=== PATIENT | female | born 1960 | race Caucasian/White ===

== ENCOUNTER 2020-12-27 18:51 | Emergency (ER) | payer OTHER ==
--- OUTSIDE RECORDS SUMMARY | 2020-12-27 19:02 | EXTERNAL MEDICAL SUMMARY RPT | Continuity of Care Document ---
:1960 Demographics Phone Unavailable Preferred Language Unknown Marital Status Unknown Anglican Affiliation Unknown Race Unknown Ethnic Group Unknown Author Organization [place] Address [address] [id number] Phone Social History date description facility [phone]
[2020-12-27 19:06] VITALS: BP 98/75
--- NOTE | 2020-12-27 20:10 | XRAY Report ---
PROCEDURE: Ankle 3 View LT INDICATIONS: Trauma TECHNIQUE: 3 views of the ankle were acquired. COMPARISON: Left foot radiographs 06/29/2014 FINDINGS: Bones: Tiny minimally displaced avulsion-type fracture at the distal tip of the fibula. No additional fracture is seen. Ankle mortise is normally aligned. No suspicious bony lesions. A plantar calcane al spur is present. Soft tissues: Soft tissue edema is seen over the lateral malleolus. IMPRESSION: Tiny minimally displaced avulsion fracture at the distal tip of the fibula with overlyin g soft tissue edema. Reviewed by: Hossein Dutta MD on 12/27/2020 8:09 PM PDT Approved by: Hossein Dutta MD on 12/27/2020 8:09 PM PDT Station ID: [id number]
--- NOTE | 2020-12-27 20:44 | ED Physician Documentation ---
History of Present Illness - Stated complaint Stated Complaint: LT LEG INJURY - Chief complaint Chief Complaint: Trauma Ext - History obtained from History obtained from: Patient - Additonal information Additional information: 60-year-old woman presents with left ankle pain after twisting it today. She is unable to ambulate normally afterwards and come to the emergency department to be evaluated. Pain was sudden onset, aching, localized to the lateral part of the left ankle and nonradiating, worse with range of motion. Patient denies other symptoms or other injury. Review of Systems Skin: denies: Lesions, Abrasion (s) Musculoskeletal: reports: Extremity pain, Joint pain Neurologic: denies: Focal weakness, Numbness PD PAST MEDICAL HISTORY - Past Medical History Past Medical History: No - Past Surgical History Past Surgical History: Yes Ortho: Carpal Tunnel surgery HEENT: Tonsil/Adenoidectomy - Present Medications Home Medications: Ambulatory Orders Medication Instructions Recorded Confirmed No Known Home Medications 12/27/20 12/27/20 - Allergies Allergies/Adverse Reactions: Allergies Allergy/AdvReac Type Severity Reaction Status Date / Time No Known Drug Allergies Allergy Verified 12/27/20 19:03 - Social History Does the pt smoke?: No Smoking Status: Never smoker Does the pt drink ETOH?: No Does the pt have substance abuse?: No - Immunizations Immunizations are current?: Yes - POLST Patient has POLST: No PD ED PE NORMAL - Vitals Vital signs reviewed: Yes - General General: Alert and oriented X 3, No acute distress, Well developed/nourished - HEENT HEENT: Atraumatic, PERRL, EOMI - Neck Neck: Supple, no meningeal sign - Cardiac Cardiac: RRR - Respiratory Respiratory: No respiratory distress, Clear bilaterally - Abdomen Abdomen: Non tender, Non distended - Female Female : Deferred - Rectal Rectal: Deferred - Back Back: No CVA TTP - Derm Derm: Normal color, Warm and dry - Extremities Extremities: No deformity, Other (Normal sensation bilateral lower extremity. normal strength in bilateral lower extremity. 2+ bilateral DP and PT pulses. Left lateral malleolus tender to palpation. Nontender to other parts of the ankle or foot.) - Neuro Neuro: Alert and oriented X 3 - Psych Psych: Normal mood, Normal affect Results - Vitals Vitals: Vital Signs - 24 hr 12/27/20 19:03 Temperature 36.5 C Heart Rate 72 Respiratory 16 Rate Blood Pressure 98/75 O2 Saturation 100 Oxygen O2 Source Room air PD MEDICAL DECISION MAKING - ED course Complexity details: reviewed results, d/w patient ED course: 60-year-old woman presents with L distal fibula avulsion fracture. Patient was provided with a hard boot and crutches and Ortho follow-up in 1 week. Strict return precautions given. Departure - Departure Disposition: 01 Home, Self Care Clinical Impression: Fracture of distal fibula Condition: Good Instructions: ED RICE Follow-Up: Tobias Naidu MD [Provider Admit Priv/Credential] - Comments: You are seen in the emergency department for break in the tip of your fibula on the left side. Please follow-up with Dr. Naidu in 1 week or with the [facility] for orthopedics referral. Return to the emergency department if you experience any new or worsening symptoms or other concerns. Discharge Date/Time: 12/27/20 21:15
== END 2020-12-27 21:15 | disposition home or self-care (01) ==
LOC: ED 18:51
DX: S82.832A Other fracture of upper and lower end of left fibula, initial encounter for closed fracture (principal); X50.1XXA Overexertion from prolonged static or awkward postures, initial encounter; Y93.01 Activity, walking, marching and hiking
CPT/HCPCS: 99283; 99284

== ENCOUNTER 2023-01-03 00:14 | Emergency (ER) | payer OTHER ==
--- OUTSIDE RECORDS SUMMARY | 2023-01-03 00:59 | EXTERNAL MEDICAL SUMMARY RPT | Continuity of Care Document ---
:1960 Author Organization [facility] Address [address] [place] [address] Phone Care Team Providers Name Role Phone Unavailable Unavailable Unavailable Praneeth Patterson Unavailable Unavailable Allergies and Intolerances date description facility type (no date) No Known Drug Allergies [facility] (unkn own) Encounters No information. Functional Status No information. Immunizations No information. Medications No information. Problems date description facility 2022-11-21 11:52 Abnormal findings on diagnostic imaging of [facility] liver and biliary 2022-11-21 12:52 Abnormal findings on diagnostic imaging of [facility] liver and biliary 2022-11-26 08:58 Abnormal findings on diagnostic imaging of [facility] liver and biliary 2022-11-26 08:58 Encounter for screening for malignant [facility] colon 2022-11-26 11:26 Abnormal findings on diagnostic imaging of [facility] liver and biliary 2022-11-26 11:26 Encounter for screening for malignant [facility] colon 2022-11-26 11:39 Abnormal findings on diagnostic imaging of [facility] liver and biliary 2022-11-26 11:39 Encounter for screening for malignant [facility] colon 2022-11-26 12:08 Abnormal findings on diagnostic imaging of [facility] liver and biliary 2022-11-26 12:08 Encounter for screening for malignant [facility] colon Procedures date description facility 2022-11-21 00:00 Biopsy, liver, with US guidance [facility] 2022-11-26 00:00 Colonoscopy [facility] 2022-11-21 00:00 [facility] test date author facility value unit interpret ation Result panel 1 (unknown) (no date) (unknown) [facility]) Result panel 2 (unknown) (no date) (unknown) [facility] Result panel 3 (unknown) (no date) (unknown) [facility] Result panel 4 (unknown) (no date) (unknown[facility]) Result panel 5 (unknown) (no date) (unknown[facility]) Result panel 6 (unknown) (no date) (unknown[facility]) Result panel 7 (unknown) (no date) (unknown[facility]) Result panel 8 (unknown) (no date) (unknown[facility]) Result panel 9 (unknown) (no date) (unknown[facility]) Result panel 10 (unknown) (no date) (unknown[facility]) Result panel 11 (unknown) (no date) (unknown[facility]) Result panel 12 (unknown) (no date) (unknown[facility]) Result panel 13 (unknown) (no date) (unknown[facility]) Result panel 14 (unknown) (no date) (unknown[facility]) Result panel 15 (unknown) (no date) (unknown[facility]) Result panel 16 (unknown) (no date) (unknown[facility]) Result panel 17 (unknown) (no date) (unknown[facility]) Result panel 18 (unknown) (no date) (unknown[facility]) Result panel 19 (unknown) (no date) (unknown[facility]) Result panel 20 (unknown) (no date) (unknown[facility] Result panel 21 (unknown) (no date) (unknown) (unknown) (no value) (units 191 39-5 unknown) (unknown) (no date) (unknown) (unknown) (no value) (units 226 33-2 unknown) (unknown) (no date) (unknown) (unknown) (no value) (units 226 34-0 unknown) (unknown) (no date) (unknown) (unknown) (no value) (units 226 37-3 unknown) (unknown) (no date) (unknown) (unknown) (no value) (units 495 60-6 unknown) (unknown) (no date) (unknown) (unknown) (no value) (units 527 97-8 unknown) (unknown) (no date) (unknown) (unknown) (no value) (units (un known) unknown) (unknown) (no date) (unknown) (unknown) (no value) (units (un known) unknown) (unknown) (no date) (unknown) (unknown) (no value) (units (un known) unknown) (unknown) (no date) (unknown) (unknown) (no value) (units (un known) unknown) (unknown) (no date) (unknown) (unknown) (no value) (units (un known) unknown) (unknown) (no date) (unknown) (unknown) (no value) (units (un known) unknown) (unknown) (no date) (unknown) (unknown) Comment: (units 37330 -1 unknown) (unknown) (no date) (unknown) (unknown) Comment: (units (unkn own) unknown) Result panel 22 (unknown) (no (unknown) (unknown) (no value) (units (unk nown) date) unknown) (unknown) (no (unknown) (unknown) 11/21/22 (units (unkno wn) date) unknown) (unknown) (no (unknown) (unknown) [id number] (units (unkno wn) date) unknown) (unknown) (no (unknown) (unknown) [address] [place] [address] (units (unknown) date) unknown) (unknown) (no (unknown) (unknown) Accession (units (unkn own) date) Number: unknown) [id number] (unknown) (no (unknown) (unknown) Age/Sex: 62 / F (units (unknown) date) Date of Service: unknown) (unknown) (no (unknown) (unknown) [facility] [place] (units ( unknown) date) [id number] unknown) (unknown) (no (unknown) (unknown) Approved by: (units (u nknown) date) Frank Ya M.D. on unknown) 11/21/2022 at 17:57 (unknown) (no (unknown) (unknown) Biopsy site(s): (units (unknown) date) Left hepatic lobe unknown) (unknown) (no (unknown) (unknown) COMPARISON: (units (un known) date) None. unknown) (unknown) (no (unknown) (unknown) Complications: (units (unknown) date) None. unknown) (unknown) (no (unknown) (unknown) : 1960 (units (unknown) date) Acct:[id number] unknown) (unknown) (no (unknown) (unknown) Dictated by: (units (u nknown) date) Frank Ya M.D. on unknown) 11/21/2022 at 17:55 (unknown) (no (unknown) (unknown) FINDINGS: (units (unkn own) date) unknown) (unknown) (no (unknown) (unknown) IMPRESSION: (units (un known) date) Successful unknown) ultrasound-guided liver biopsy, with pathology results (unknown) (no (unknown) (unknown) INDICATIONS: (units (u nknown) date) ABNORMAL LIVER unknown) (unknown) (no (unknown) (unknown) [facility] (units (unknown) date) unknown) (unknown) (no (unknown) (unknown) Loc: OR (units (unkno wn) date) unknown) (unknown) (no (unknown) (unknown) Medications: 1% (units (unknown) date) lidocaine for unknown) local anaesthesia. IV Versed and Fentanyl for (unknown) (no (unknown) (unknown) Needle: Temno (units ( unknown) date) biopsy needle unknown) set. 20 gauge (unknown) (no (unknown) (unknown) Number of (units (unkn own) date) passes: 5 unknown) (unknown) (no (unknown) (unknown) Ordering (units (unkno wn) date) Provider: unknown) Praneeth Patterson MD (unknown) (no (unknown) (unknown) PROCEDURE: US (units ( unknown) date) BIOPSY LIVER unknown) (unknown) (no (unknown) (unknown) Patient: (units (unkno wn) date) Indira Chavez unknown) MR#: [id number] (unknown) (no (unknown) (unknown) Procedure: US (units ( unknown) date) biopsy liver unknown) (unknown) (no (unknown) (unknown) Real-time (units (unkn own) date) sonography was unknown) utilized to choose the site for percutaneous hepatic (unknown) (no (unknown) (unknown) Signed (units (unkno wn) date) unknown) (unknown) (no (unknown) (unknown) TECHNIQUE: The (units (unknown) date) indications, unknown) alternatives, benefits, risks, and complications of (unknown) (no (unknown) (unknown) The skin was (units (u nknown) date) prepped and unknown) draped in the usual sterile fashion. 1% lidocaine was (unknown) (no (unknown) (unknown) Ultrasound (units (unk nown) date) Report unknown) (unknown) (no (unknown) (unknown) Ultrasound-guide (units (unknown) date) d liver biopsy unknown) with sedation analgesia for approximately 30 (unknown) (no (unknown) (unknown) and (units (unkno wn) date) unknown) (unknown) (no (unknown) (unknown) biopsy. (units (unkno wn) date) unknown) (unknown) (no (unknown) (unknown) conscious (units (unkn own) date) unknown) (unknown) (no (unknown) (unknown) core biopsies (units ( unknown) date) were obtained. unknown) The needle was then withdrawn; a bandage and (unknown) (no (unknown) (unknown) infiltrated down (units (unknown) date) to the hepatic unknown) capsule. A coaxial needle was then advanced (unknown) (no (unknown) (unknown) into the (units (unkno wn) date) unknown) (unknown) (no (unknown) (unknown) liver under (units (un known) date) direct unknown) sonographic visualization. A biopsy apparatus was then (unknown) (no (unknown) (unknown) minutes. (units (unkno wn) date) unknown) (unknown) (no (unknown) (unknown) overlying (units (unkn own) date) unknown) (unknown) (no (unknown) (unknown) pending. (units (unkno wn) date) unknown) (unknown) (no (unknown) (unknown) personnel. (units (unk nown) date) unknown) (unknown) (no (unknown) (unknown) placed in the (units ( unknown) date) chart. Continuous unknown) EKG and hemodynamic monitoring was started by (unknown) (no (unknown) (unknown) procedure were (units (unknown) date) explained to the unknown) patient. Written informed consent was obtained (unknown) (no (unknown) (unknown) sedation for (units (u nknown) date) approximately 30 unknown) minutes (see nursing record). (unknown) (no (unknown) (unknown) the (units (unkno wn) date) unknown) (unknown) (no (unknown) (unknown) trained (units (unkno wn) date) unknown) (unknown) (no (unknown) (unknown) utilized, and (units ( unknown) date) unknown) (unknown) (no (unknown) (unknown) weight were (units (un known) date) applied to the unknown) biopsy site. Result panel 23 (unknown) (no date) (unknown) (unknown) 13.6 g/dl (unkn own) (unknown) (no date) (unknown) (unknown) 13.8 % (unkn own) (unknown) (no date) (unknown) (unknown) 3.4 x10 3/ul (unkn own) (unknown) (no date) (unknown) (unknown) 31.7 pg (unkn own) (unknown) (no date) (unknown) (unknown) 33.8 % (unkn own) (unknown) (no date) (unknown) (unknown) 4.29 x10 6/ul (unkn own) (unknown) (no date) (unknown) (unknown) 40.3 % (unkn own) (unknown) (no date) (unknown) (unknown) 83 x10 3/ul (unkn own) (unknown) (no date) (unknown) (unknown) 93.8 fl (unkn own) Result panel 24 (unknown) (no date) (unknown) (unknown) 1.1 (units unknown) (unknown) (unknown) (no date) (unknown) (unknown) 12.6 seconds (unkn own) Result panel 25 (unknown) (no date) (unknown) (unknown) 40 seconds (unkn own) (unknown) (no date) (unknown) (unknown) 40 seconds (unkn own) Result panel 26 (unknown) (no (unknown) (unknown) (no value) (units (unk nown) date) unknown) (unknown) (no (unknown) (unknown) [id number]) (units (unknown) date) unknown) (unknown) (no (unknown) (unknown) (units (unknown) date) unknown) (unknown) (no (unknown) (unknown) Performed at: (units (unknown) date) 01 unknown) (unknown) (no (unknown) (unknown) . 01 (units (unkno wn) date) unknown) (unknown) (no (unknown) (unknown) . (units (unkno wn) date) unknown) (unknown) (no (unknown) (unknown) /FRR 11/22/2022 (units (unknown) date) 1403 Local unknown) (unknown) (no (unknown) (unknown) [address] [place] [address] (units (unknown) date) unknown) (unknown) (no (unknown) (unknown) [address] [place] [address] (units (unknown) date) [address], unknown) [place] [phone] (unknown) (no (unknown) (unknown) [id number], [id number], (units (unknown) date) [id number], [id number], unknown) [id number] (unknown) (no (unknown) (unknown) [place] (units ( unknown) date) [id number] unknown) (unknown) (no (unknown) (unknown) CPT . (units (unkno wn) date) unknown) (unknown) (no (unknown) (unknown) Chronic hepatitis (units (unknown) date) with moderate unknown) activity (grade 3) and septal (unknown) (no (unknown) (unknown) Collection Date: (units (unknown) date) 11/21/22 unknown) (unknown) (no (unknown) (unknown) Comment: (units (unkno wn) date) unknown) (unknown) (no (unknown) (unknown) DD/ (units (unknown) date) 0000 unknown) (unknown) (no (unknown) (unknown) Date of : (units (unknown) date) 1960 Admit unknown) Date: 11/21/22 (unknown) (no (unknown) (unknown) Diagnosis: (units (unk nown) date) unknown) (unknown) (no (unknown) (unknown) Dictated By: (units (u nknown) date) Stacy Benitez unknown) (unknown) (no (unknown) (unknown) Electronically (units (unknown) date) signed: . unknown) (unknown) (no (unknown) (unknown) Gross description: (units (unknown) date) . unknown) (unknown) (no (unknown) (unknown) [facility] (units (unknown) date) unknown) (unknown) (no (unknown) (unknown) [facility] Accession (units ( unknown) date) Number: [id number] unknown) (unknown) (no (unknown) (unknown) [facility] (units (unknown) date) Cytology unknown) (unknown) (no (unknown) (unknown) Left Lobe of (units (u nknown) date) Liver, Image-Guided unknown) Core Biopsy: (unknown) (no (unknown) (unknown) MD Jun Hay (units (unknown) date) Phone: unknown) [phone] (unknown) (no (unknown) (unknown) (units (unknown) date) Dictating Dr: unknown) Stacy Benitez MD (unknown) (no (unknown) (unknown) MRV 11/27/2022 (units (unknown) date) 1625 Local unknown) (unknown) (no (unknown) (unknown) Material (units (unkno wn) date) submitted: . unknown) (unknown) (no (unknown) (unknown) [facility]- [id number] (units (unknown) date) unknown) (unknown) (no (unknown) (unknown) No. of (units (o wn) date) containers..01 unknown) Tissue (unknown) (no (unknown) (unknown) Ordering (units (o wn) date) Physician: unknown) Praneeth Patterson MD (unknown) (no (unknown) (unknown) Pathologist (units (un known) date) provided ICD-10: unknown) (unknown) (no (unknown) (unknown) Pathology (units (unkn own) date) Diagnostic Report unknown) (unknown) (no (unknown) (unknown) Patient name: (units ( unknown) date) Indira Chavez unknown) (unknown) (no (unknown) (unknown) Stacy (units (o wn) date) MD Eli, unknown) Pathologist (unknown) (no (unknown) (unknown) R93.2 (units (o wn) date) unknown) (unknown) (no (unknown) (unknown) Signed By: (units (unk nown) date) 11/27/221934 unknown) (unknown) (no (unknown) (unknown) Signed (units (o wn) date) unknown) (unknown) (no (unknown) (unknown) TD/TT: 11/27/22 (units (unknown) date) 1934 unknown) (unknown) (no (unknown) (unknown) The liver shows (units (unknown) date) moderate degree of unknown) predominantly chronic inflammation of (unknown) (no (unknown) (unknown) The specimen is (units (unknown) date) received in unknown) formalin labeled with the patient's name, , (unknown) (no (unknown) (unknown) This case is also (units (unknown) date) reviewed by Dr. 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 In addition, (unknown) (no (unknown) (unknown) fibrosis/cirrhosis (units (unknown) date) is present. A unknown) reticulin stain highlights focal hepatic (unknown) (no (unknown) (unknown) greatest (units (unkno wn) date) dimension. The unknown) specimen is submitted entirely in cassette A1. (unknown) (no (unknown) (unknown) hepatocellular (units (unknown) date) damage associated unknown) with chronic and occasionally (unknown) (no (unknown) (unknown) interpretation. (units (unknown) date) unknown) (unknown) (no (unknown) (unknown) liver - LEFT LOBE (units (unknown) date) LIVER unknown) (unknown) (no (unknown) (unknown) neutrophilic/eosin (units (unknown) date) ophilic unknown) inflammation. The bile ducts are intact without (unknown) (no (unknown) (unknown) normal limits. A (units (unknown) date) trichrome stain unknown) highlights the presence of fibrous (unknown) (no (unknown) (unknown) plates composed of (units (unknown) date) two to three cells unknown) in thichkness. A PAS with diastase (unknown) (no (unknown) (unknown) proliferation or (units (unknown) date) inflammation. Fatty unknown) change is not seen. Septal bridging (unknown) (no (unknown) (unknown) scoring system. (units (unknown) date) unknown) (unknown) (no (unknown) (unknown) septae. Given the (units (unknown) date) patient's history unknown) of alcohol use and obesity, these (unknown) (no (unknown) (unknown) stain is negative (units (unknown) date) for unknown) intracytoplasmic globules. An iron stain is within (unknown) (no (unknown) (unknown) studies to rule (units (unknown) date) out viral/biliary unknown) etiologies are recommended. (unknown) (no (unknown) (unknown) the portal tracts (units (unknown) date) with extension unknown) beyond the limiting plates and foci of Result panel 27 (unknown) (no date) (unknown) (unknown) 42.1 % (unkn own) (unknown) (no date) (unknown) (unknown) 42.1 % (unkn own) Result panel 28 (unknown) (no date) (unknown) (unknown) (no value) (units 191 39-5 unknown) (unknown) (no date) (unknown) (unknown) (no value) (units 226 33-2 unknown) (unknown) (no date) (unknown) (unknown) (no value) (units 226 34-0 unknown) (unknown) (no date) (unknown) (unknown) (no value) (units 226 37-3 unknown) (unknown) (no date) (unknown) (unknown) (no value) (units 495 60-6 unknown) (unknown) (no date) (unknown) (unknown) (no value) (units 527 97-8 unknown) (unknown) (no date) (unknown) (unknown) (no value) (units (un known) unknown) (unknown) (no date) (unknown) (unknown) (no value) (units (un known) unknown) (unknown) (no date) (unknown) (unknown) (no value) (units (un known) unknown) (unknown) (no date) (unknown) (unknown) (no value) (units (un known) unknown) (unknown) (no date) (unknown) (unknown) (no value) (units (un known) unknown) (unknown) (no date) (unknown) (unknown) (no value) (units (un known) unknown) Result panel 29 (unknown) (no (unknown) (unknown) (no value) (units (unk nown) date) unknown) (unknown) (no (unknown) (unknown) (past 8 hours): (units (unknown) date) unknown) (unknown) (no (unknown) (unknown) 11/26/22 1050 (units ( unknown) date) unknown) (unknown) (no (unknown) (unknown) 11/26/22 (units (unkno wn) date) unknown) (unknown) (no (unknown) (unknown) 09:39 (units (unkno wn) date) unknown) (unknown) (no (unknown) (unknown) [id number] (units (unkno wn) date) unknown) (unknown) (no (unknown) (unknown) Abnormal uterine (units (unknown) date) bleeding unknown) (unknown) (no (unknown) (unknown) Acquired trigger (units (unknown) date) finger unknown) (unknown) (no (unknown) (unknown) Age/Sex: 62 / F (units (unknown) date) unknown) (unknown) (no (unknown) (unknown) Allergies (units (unkn own) date) unknown) (unknown) (no (unknown) (unknown) Allergy/AdvReac (units (unknown) date) Type Severity unknown) Reaction Status Date / Time (unknown) (no (unknown) (unknown) Arthritis (units (unkn own) date) unknown) (unknown) (no (unknown) (unknown) Assessment + (units (u nknown) date) Plan narrative: unknown) (unknown) (no (unknown) (unknown) Assessment + (units (u nknown) date) Plan unknown) (unknown) (no (unknown) (unknown) Blood Pressure (units (unknown) date) 134/74 unknown) (unknown) (no (unknown) (unknown) Borderline blood (units (unknown) date) pressure unknown) (unknown) (no (unknown) (unknown) Cardiac exam (units (u nknown) date) reveals no S3 or unknown) murmur (unknown) (no (unknown) (unknown) Chest clear to (units (unknown) date) auscultation unknown) percussion (unknown) (no (unknown) (unknown) Chief complaint: (units (unknown) date) Colonoscopy unknown) (unknown) (no (unknown) (unknown) Colonoscopy with (units (unknown) date) biopsy and unknown) terminal ileoscopy to be performed for loose stools (unknown) (no (unknown) (unknown) : 1960 (units (unknown) date) Acct:[id number] unknown) (unknown) (no (unknown) (unknown) Date of Service: (units (unknown) date) 11/26/22 unknown) (unknown) (no (unknown) (unknown) Eczema (units (unkno wn) date) unknown) (unknown) (no (unknown) (unknown) Exam Narrative: (units (unknown) date) unknown) (unknown) (no (unknown) (unknown) Exam (units (unkno wn) date) unknown) (unknown) (no (unknown) (unknown) Family + Social (units (unknown) date) History unknown) (unknown) (no (unknown) (unknown) Hemorrhoids (units (un known) date) unknown) (unknown) (no (unknown) (unknown) History + (units (unkn own) date) Physical Report unknown) (unknown) (no (unknown) (unknown) History of (units (unk nown) date) Present Illness unknown) (unknown) (no (unknown) (unknown) History of (units (unk nown) date) carpal tunnel unknown) release of both wrists (unknown) (no (unknown) (unknown) History of (units (unk nown) date) colonoscopy unknown) (unknown) (no (unknown) (unknown) History of (units (unk nown) date) tonsillectomy unknown) (unknown) (no (unknown) (unknown) Home Medications (units (unknown) date) and Allergies unknown) (unknown) (no (unknown) (unknown) Home Medications (units (unknown) date) unknown) (unknown) (no (unknown) (unknown) [facility] (units (unknown) date) [address] [place] [address] unknown) [place] [address] (unknown) (no (unknown) (unknown) Medical History (units (unknown) date) (Updated 02/19/18 unknown) @ 10:51 by Khushi Gutierrez RN) (unknown) (no (unknown) (unknown) Medication (units (unk nown) date) Instructions unknown) Recorded Confirmed Type (unknown) (no (unknown) (unknown) Meds (units (unkno wn) date) unknown) (unknown) (no (unknown) (unknown) Narrative (units (unkn own) date) unknown) (unknown) (no (unknown) (unknown) Narrative: (units (unk nown) date) unknown) (unknown) (no (unknown) (unknown) No Known Drug (units ( unknown) date) Allergies Allergy unknown) Verified 11/21/22 12:52 (unknown) (no (unknown) (unknown) No Known Home (units ( unknown) date) Medications unknown) 02/22/18 11/26/22 History (unknown) (no (unknown) (unknown) Occasional loose (units (unknown) date) stools and need unknown) for colorectal cancer screening (unknown) (no (unknown) (unknown) Oropharynx free (units (unknown) date) of lesions unknown) (unknown) (no (unknown) (unknown) Oxygen Delivery (units (unknown) date) Method Room Air unknown) (unknown) (no (unknown) (unknown) Pain (units (unkno wn) date) unknown) (unknown) (no (unknown) (unknown) Patient History (units (unknown) date) unknown) (unknown) (no (unknown) (unknown) Patient: (units (unkno wn) date) Indira Chavez unknown) MR#: [id number] (unknown) (no (unknown) (unknown) Postmenopausal (units (unknown) date) unknown) (unknown) (no (unknown) (unknown) Provider: (units (unkn own) date) Can Galarza unknown) (unknown) (no (unknown) (unknown) Pulse Oximetry (units (unknown) date) 99 unknown) (unknown) (no (unknown) (unknown) Pulse Rate 60 (units ( unknown) date) unknown) (unknown) (no (unknown) (unknown) Respiratory Rate (units (unknown) date) 16 unknown) (unknown) (no (unknown) (unknown) Signed (units (unkno wn) date) By:<Electronicall unknown) y signed by Can Galarza MD> (unknown) (no (unknown) (unknown) Sinus drainage (units (unknown) date) unknown) (unknown) (no (unknown) (unknown) Smoking Status (units (unknown) date) Former smoker unknown) (unknown) (no (unknown) (unknown) Social History: (units (unknown) date) unknown) (unknown) (no (unknown) (unknown) Substance Use (units ( unknown) date) Type does not use unknown) (unknown) (no (unknown) (unknown) Surgical History (units (unknown) date) (Updated 02/19/18 unknown) @ 10:45 by Khushi Gutierrez RN) (unknown) (no (unknown) (unknown) Temperature 98.5 (units (unknown) date) F unknown) (unknown) (no (unknown) (unknown) Tobacco + (units (unkn own) date) Substance use: unknown) (unknown) (no (unknown) (unknown) Vital Signs (units (un known) date) unknown) (unknown) (no (unknown) (unknown) alcohol intake (units (unknown) date) current unknown) (unknown) (no (unknown) (unknown) alcohol intake (units (unknown) date) frequency other unknown) (unknown) (no (unknown) (unknown) and for colon (units ( unknown) date) cancer screening. unknown) Risks, benefits, alternatives have been e (unknown) (no (unknown) (unknown) household (units (unkn own) date) members spouse unknown) (unknown) (no (unknown) (unknown) xplained. (units (unkn own) date) unknown) Result panel 30 (unknown) (no (unknown) (unknown) (no value) (units (unk nown) date) unknown) (unknown) (no (unknown) (unknown) 1. (units (unkno wn) date) unknown) (unknown) (no (unknown) (unknown) [id number] (units (unkno wn) date) unknown) (unknown) (no (unknown) (unknown) After informed (units (unknown) date) consent was unknown) obtained the patient was placed in left lateral (unknown) (no (unknown) (unknown) Age/Sex: 62 / F (units (unknown) date) unknown) (unknown) (no (unknown) (unknown) Blood loss none (units (unknown) date) unknown) (unknown) (no (unknown) (unknown) Colonoscopy Note (units (unknown) date) unknown) (unknown) (no (unknown) (unknown) Colonoscopy (units (un known) date) unknown) (unknown) (no (unknown) (unknown) Complications (units ( unknown) date) none unknown) (unknown) (no (unknown) (unknown) : 1960 (units (unknown) date) Acct:[id number] unknown) (unknown) (no (unknown) (unknown) Date of Service: (units (unknown) date) 11/26/22 unknown) (unknown) (no (unknown) (unknown) Date of (units (unkno wn) date) procedure: unknown) 11/26/22 (unknown) (no (unknown) (unknown) Findings (units (unkno wn) date) unknown) (unknown) (no (unknown) (unknown) Indications: (units (u nknown) date) unknown) (unknown) (no (unknown) (unknown) [facility] (units (unknown) date) [address] unknown) [place] [address] (unknown) (no (unknown) (unknown) Occasional loose (units (unknown) date) stools and need unknown) for colorectal cancer screening (unknown) (no (unknown) (unknown) Operative (units (unkn own) date) Date/Time/Diagnos unknown) es (unknown) (no (unknown) (unknown) Patient: (units (unkno wn) date) Indira Chavez unknown) MR#: [id number] (unknown) (no (unknown) (unknown) Pre-op (units (unkno wn) date) diagnosis: See unknown) indication and findings (unknown) (no (unknown) (unknown) Procedure + (units (un known) date) Clinicians unknown) (unknown) (no (unknown) (unknown) Procedure Notes (units (unknown) date) unknown) (unknown) (no (unknown) (unknown) Procedure in (units (u nknown) date) detail: unknown) (unknown) (no (unknown) (unknown) Provider: (units (unkn own) date) Can Galarza unknown) MD (unknown) (no (unknown) (unknown) Sedation mac (units (u nknown) date) unknown) (unknown) (no (unknown) (unknown) Signed By: (units (unk nown) date) unknown) (unknown) (no (unknown) (unknown) Study performed: (units (unknown) date) unknown) (unknown) (no (unknown) (unknown) Surgeon: (units (unkno wn) date) Can Galarza unknown) (unknown) (no (unknown) (unknown) advanced cecum. (units (unknown) date) Preparation was unknown) good. On slow withdrawal mucosa was carefully (unknown) (no (unknown) (unknown) decubitus (units (unkn own) date) position. The unknown) video colonoscope was introduced in the rectum slowly (unknown) (no (unknown) (unknown) examined. The (units ( unknown) date) scope was unknown) removed. The patient tolerated procedure well. Result panel 31 (unknown) (no (unknown) (unknown) (no value) (units (unk nown) date) unknown) (unknown) (no (unknown) (unknown) (units (unknown) date) unknown) (unknown) (no (unknown) (unknown) Performed at: (units (unknown) date) 01 unknown) (unknown) (no (unknown) (unknown) . 01 (units (unkno wn) date) unknown) (unknown) (no (unknown) (unknown) /CPE 11/28/2022 (units (unknown) date) 0900 Local unknown) (unknown) (no (unknown) (unknown) 0.3 x 0.2 x 0.1 (units (unknown) date) cm to 0.1 x 0.1 x unknown) 0.1 cm submitted entirely in 1 (unknown) (no (unknown) (unknown) [address] [place] [address] (units (unknown) date) unknown) (unknown) (no (unknown) (unknown) [address] [place] [address] (units (unknown) date) [address], unknown) [place], [place] [id number] (unknown) (no (unknown) (unknown) [id number], [id number] (units (unknown) date) unknown) (unknown) (no (unknown) (unknown) A-B. Right, Left (units (unknown) date) Colon, Biopsies: unknown) (unknown) (no (unknown) (unknown) [place], [place] (units ( unknown) date) [id number] unknown) (unknown) (no (unknown) (unknown) CPT . (units (unkno wn) date) unknown) (unknown) (no (unknown) (unknown) Collection Date: (units (unknown) date) 11/26/22 unknown) (unknown) (no (unknown) (unknown) Colonic mucosa (units (unknown) date) with no unknown) diagnostic abnormality. (unknown) (no (unknown) (unknown) DD/ (units (unknown) date) 0000 unknown) (unknown) (no (unknown) (unknown) Date of : (units (unknown) date) 1960 Admit unknown) Date: 11/26/22 (unknown) (no (unknown) (unknown) Diagnosis: (units (unk nown) date) unknown) (unknown) (no (unknown) (unknown) Dictated By: (units (u nknown) date) Rishi Pelletier unknown) (unknown) (no (unknown) (unknown) Electronically (units (unknown) date) signed: . unknown) (unknown) (no (unknown) (unknown) Gross (units (unkno wn) date) description: . unknown) (unknown) (no (unknown) (unknown) [facility] (units (unknown) date) unknown) (unknown) (no (unknown) (unknown) [facility] (units ( unknown) date) Number: unknown) [id number] (unknown) (no (unknown) (unknown) [facility] (units (unknown) date) [place] [facility] unknown) (unknown) (no (unknown) (unknown) MD Barahona (units (unkn own) date) Bharti MEREDITH Phone: unknown) [phone] (unknown) (no (unknown) (unknown) (units (unknown) date) Dictating Dr: unknown) Rishi Pelletier MD (unknown) (no (unknown) (unknown) Material (units (unkno wn) date) submitted: . unknown) (unknown) (no (unknown) (unknown) Rishi Mix (units (unkn own) date) MD Prabhu, PhD, unknown) Pathologist (unknown) (no (unknown) (unknown) NPI- [id number] (units (unknown) date) unknown) (unknown) (no (unknown) (unknown) Negative for (units (u nknown) date) active, chronic, unknown) and microscopic colitis. (unknown) (no (unknown) (unknown) Negative for (units (u nknown) date) dysplasia and unknown) malignancy. (unknown) (no (unknown) (unknown) No. of (units (unkno wn) date) containers..02 unknown) Tissue (unknown) (no (unknown) (unknown) Ordering (units (unkno wn) date) Physician: unknown) Can Galarza MD (unknown) (no (unknown) (unknown) PART A: colon - (units (unknown) date) RIGHT COLON unknown) BIOSPIES (unknown) (no (unknown) (unknown) PART B: colon - (units (unknown) date) LEFT COLON unknown) BIOPSIES (unknown) (no (unknown) (unknown) Part A: RIGHT (units ( unknown) date) COLON BIOSPIES: unknown) (unknown) (no (unknown) (unknown) Part B: LEFT (units (u nknown) date) COLON BIOPSIES: unknown) (unknown) (no (unknown) (unknown) Pathologist (units (un known) date) provided ICD-10: unknown) (unknown) (no (unknown) (unknown) Pathology (units (unkn own) date) Diagnostic Report unknown) (unknown) (no (unknown) (unknown) Patient name: (units ( unknown) date) Indira Chavez unknown) (unknown) (no (unknown) (unknown) Received in (units (un known) date) formalin are 4 unknown) fragment(s) of morataya, soft tissue measuring (unknown) (no (unknown) (unknown) Received in (units (un known) date) formalin are unknown) multiple fragment(s) of morataya, soft tissue (unknown) (no (unknown) (unknown) [place] 12/01/2022 (units (unknown) date) 1210 Local unknown) (unknown) (no (unknown) (unknown) Signed By: (units (unk nown) date) 12/01/222006 unknown) (unknown) (no (unknown) (unknown) Signed (units (unkno wn) date) unknown) (unknown) (no (unknown) (unknown) Specimen (units (unkno wn) date) Comment: A unknown) courtesy copy of this report has been sent to [phone] (unknown) (no (unknown) (unknown) TD/TT: 12/01/22 (units (unknown) date) 2006 unknown) (unknown) (no (unknown) (unknown) Z12.11, R93.2 (units ( unknown) date) unknown) (unknown) (no (unknown) (unknown) cassette(s) (units (un known) date) unknown) (unknown) (no (unknown) (unknown) measuring 0.5 x (units (unknown) date) 0.5 x 0.1 cm in unknown) aggregate submitted entirely in 1 Result panel 32 (unknown) (no (unknown) (unknown) (no value) (units (unk nown) date) unknown) (unknown) (no (unknown) (unknown) 11/26/22 1124 (units ( unknown) date) unknown) (unknown) (no (unknown) (unknown) 1. Unable to (units (u nknown) date) enter terminal unknown) ileum because of extensive hiccups. (unknown) (no (unknown) (unknown) 2. Normal (units (unkn own) date) colonoscopy to unknown) cecum other than patchy erythema throughout. Biopsies (unknown) (no (unknown) (unknown) 3. No colon (units (un known) date) polyps noted unknown) (unknown) (no (unknown) (unknown) [id number] (units (unkno wn) date) unknown) (unknown) (no (unknown) (unknown) After informed (units (unknown) date) consent was unknown) obtained the patient was placed in left lateral (unknown) (no (unknown) (unknown) Age/Sex: 62 / F (units (unknown) date) unknown) (unknown) (no (unknown) (unknown) Blood loss none (units (unknown) date) unknown) (unknown) (no (unknown) (unknown) Colonoscopy Note (units (unknown) date) unknown) (unknown) (no (unknown) (unknown) Colonoscopy (units (un known) date) unknown) (unknown) (no (unknown) (unknown) Complications (units ( unknown) date) none unknown) (unknown) (no (unknown) (unknown) : 1960 (units (unknown) date) Acct:[id number] unknown) (unknown) (no (unknown) (unknown) Date of Service: (units (unknown) date) 11/26/22 unknown) (unknown) (no (unknown) (unknown) Date of (units (unkno wn) date) procedure: unknown) 11/26/22 (unknown) (no (unknown) (unknown) Dr. Patterson. (units (unkn own) date) Follow-up unknown) colonoscopy in 10 years (unknown) (no (unknown) (unknown) Findings (units (unkno wn) date) unknown) (unknown) (no (unknown) (unknown) Indications: (units (u nknown) date) unknown) (unknown) (no (unknown) (unknown) [facility] (units (unknown) date) [address] unknown) [place] [address] (unknown) (no (unknown) (unknown) Occasional loose (units (unknown) date) stools and need unknown) for colorectal cancer screening (unknown) (no (unknown) (unknown) Operative (units (unkn own) date) Date/Time/Diagnos unknown) es (unknown) (no (unknown) (unknown) Patient: (units (unkno wn) date) Indira Chavez unknown) MR#: [id number] (unknown) (no (unknown) (unknown) Pre-op (units (unkno wn) date) diagnosis: See unknown) indication and findings (unknown) (no (unknown) (unknown) Procedure + (units (un known) date) Clinicians unknown) (unknown) (no (unknown) (unknown) Procedure Notes (units (unknown) date) unknown) (unknown) (no (unknown) (unknown) Procedure in (units (u nknown) date) detail: unknown) (unknown) (no (unknown) (unknown) Provider: (units (unkn own) date) Can Galarza unknown) (unknown) (no (unknown) (unknown) Sedation mac (units (u nknown) date) unknown) (unknown) (no (unknown) (unknown) Signed (units (unkno wn) date) By:<Electronicall unknown) y signed by Can Galarza MD> (unknown) (no (unknown) (unknown) Study performed: (units (unknown) date) unknown) (unknown) (no (unknown) (unknown) Surgeon: (units (unkno wn) date) Can Galarza unknown) (unknown) (no (unknown) (unknown) Will be in touch (units (unknown) date) regarding the unknown) biopsy results and she will need follow-up with (unknown) (no (unknown) (unknown) advanced cecum. (units (unknown) date) Preparation was unknown) good. On slow withdrawal mucosa was carefully (unknown) (no (unknown) (unknown) decubitus (units (unkn own) date) position. The unknown) video colonoscope was introduced in the rectum slowly (unknown) (no (unknown) (unknown) examined. The (units ( unknown) date) scope was unknown) removed. The patient tolerated procedure well. (unknown) (no (unknown) (unknown) taken in the (units (u nknown) date) right and left unknown) colon to rule out microscopic colitis Social History date description facility 2022-11-21 00:00 Tobacco smoking consumption unknown (fi nding) [facility] 2022-11-26 00:00 Ex-smoker (finding) [facility] Vital Signs date measurement value units 2022-11-21 00:00 BMI 36.0 kg/m2 2022-11-21 00:00 BP_diastolic 76 mmHg 2022-11-21 00:00 BP_systolic 142 mmHg 2022-11-21 00:00 heart_rate 70 /min 2022-11-21 00:00 height_metric 162.56 cm 2022-11-21 00:00 height_standard 64 in 2022-11-21 00:00 o2_saturation 97 % 2022-11-21 00:00 respiration_rate 18 /min 2022-11-21 00:00 temperature_metric 36.22 C 2022-11-21 00:00 temperature_standard 97.2 F 2022-11-21 00:00 weight_metric 95.25 kg 2022-11-21 00:00 weight_standard 209.99 lb 2022-11-26 00:00 BP_diastolic 63 mmHg 2022-11-26 00:00 BP_systolic 129 mmHg 2022-11-26 00:00 heart_rate 63 /min 2022-11-26 00:00 o2_saturation 97 % 2022-11-26 00:00 respiration_rate 16 /min 2022-11-26 00:00 temperature_metric 36.44 C 2022-11-26 00:00 temperature_standard 97.6 F 2022-11-26 00:00 weight_metric 95.25 kg 2022-11-26 00:00 weight_standard 209.99 lb
--- NOTE | 2023-01-03 01:52 | ED Physician Documentation ---
PD HPI LOWER EXT INJURY - Stated complaint Stated Complaint: Foot Injury - Chief complaint Chief Complaint: Ext Problem - History obtained from History obtained from: Patient - Additional information Additional information: HPI from patient. Patient c/o left foot pain since yesterday when a table fell onto her left foot. Pain is worse with palpation, movement, weight-bearing and partially relieved by rest. She took hydrocodone earlier this evening without relief although she thinks the prescription might be . PD PAST MEDICAL HISTORY - Past Medical History Past Medical History: No - Past Surgical History Past Surgical History: Yes Ortho: Carpal Tunnel surgery HEENT: Tonsil/Adenoidectomy - Present Medications Home Medications: Ambulatory Orders Medication Instructions Recorded Confirmed oxyCODONE [Roxicodone] 5 mg PO Q4-6H PRN #14 tablet 01/03/23 - Allergies Allergies/Adverse Reactions: Allergies Allergy/AdvReac Type Severity Reaction Status Date / Time No Known Drug Allergies Allergy Verified 12/27/20 19:03 - Social History Does the pt smoke?: No Smoking Status: Never smoker Does the pt drink ETOH?: No Does the pt have substance abuse?: No - Immunizations Immunizations are current?: Yes - POLST Patient has POLST: No PD ED PE NORMAL - Vitals Vital signs reviewed: Yes - General General: Alert and oriented X 3, No acute distress, Well developed/nourished ( ) - Neuro Neuro: No motor deficit, No sensory deficit PD ED PE EXPANDED - Extremities Feet visual: 1 - swelling, tenderness Results - Vitals Vitals: Oxygen O2 Source Room air PD Medical Decision Making - ED course Complexity details: considered differential, d/w patient ED course: I am prescribing a short course of short-acting opioid pain medication for this patient. I have reviewed the patients LEATHER FLESHER and no concerning findings were noted. I have discussed that the opioids are for short term therapy only, and will not be refilled from the ED. Departure - Departure Disposition: 01 Home, Self Care Clinical Impression: Injury, crush, foot Qualifiers: Encounter type: initial encounter Laterality: left Qualified Code(s): S97.82XA - Crushing injury of left foot, initial encounter Condition: Good Instructions: ED Crush Injury Toe No Fx, ED Crutch Walking Prescriptions: oxyCODONE [Roxicodone] 5 mg PO Q4-6H PRN #14 tablet PRN Reason: Pain >8 Comments: There were no acute findings on the x-rays of your foot; specifically no evidence of fracture. You have been provided with crutches so you can minimize weightbearing until you feel that the pain is sufficiently improved to fully weight-bear. A prescription for oxycodone (opiate/narcotic pain medication) has been electronically submitted to the [facility] in [place]. I am prescribing a short course of narcotic pain medication for you. These are potentially dangerous and addictive medications that should be used carefully. These medications may constipate you. Take an aiok-kci-pzuwiaa stool softener (docusate) twice daily with plenty of water while taking these medications. If you go 24 hours without a bowel movement, take wlot-hpf-lqyhyws miralax, per package instructions. Do not drink or drive while taking these medications. If you received narcotic or sedating medications while in the emergency department, do not drive for 24 hours. Store this medication in a safe, secure place and out of reach of children. It is a violation of federal law to give or sell this medication to another person or to use in a manner other than prescribed. The ED will not refill narcotic prescriptions, including prescriptions lost or stolen. To dispose of unwanted medications: 1. [facility] [address] [facility] in [place] has a medication drop box. They accept prescription medications (in pill form) Thursday through Thursday 9:00 a.m. to 5:00 p.m. 2. The [facility] accepts prescription medications (in pill form only) for disposal year round. Call for more information. 3. Contact the [facility] for the next [facility] sponsored prescription drug collection event. , [phone], or [phone]; Discharge Date/Time: 01/03/23 06:02
[2023-01-03] MEDS ORDERED: oxyCODONE 5 MG TABLET PO STA ×2 (02:01→05:48)
[2023-01-03 06:03] VITALS: BP 134/78
--- NOTE | 2023-01-03 08:07 | XRAY Report ---
PROCEDURE: Toe(s) LT INDICATIONS: left foot pain TECHNIQUE: 3 views of the first toe(s) acquired. COMPARISON: X-ray foot 06/29/2024 FINDINGS: Bones: No fractures or dislocations. No suspicious bony lesions. Moderate IP degenerative narrowin g most notable at the DIP joints. Prominent osteophytes are present. Soft tissues: No suspicious soft tissue densities. IMPRESSION: No visualized acute fracture or dislocation. However, occult injury cannot be excluded. Recommend grey rt interval imaging follow-up in 7-10 days as clinically indicated for additional evaluation. The above findings are concordant with preliminary report. Reviewed by: Namrata Martinez MD on 01/03/2023 8:05 AM PDT Approved by: Namrata Martinez MD on 01/03/2023 8:05 AM PDT Station ID: [id number]
== END 2023-01-03 06:02 | disposition home or self-care (01) ==
LOC: ED 00:14
DX: S97.82XA Crushing injury of left foot, initial encounter (principal); W22.8XXA Striking against or struck by other objects, initial encounter
CPT/HCPCS: 73660; 99283; A9270